=== PATIENT | male | born 1940 | race Caucasian/White ===

== ENCOUNTER 2021-12-14 00:35 | Inpatient (IN) | payer OTHER ==
[2021-12-14] MEDS ORDERED: methylPREDNISolone NA SUCC 125 MG/2 ML VIAL IVPUSH ONE (01:09)
[2021-12-14] MEDS ORDERED: ALBUTEROL SO4 2.5/IPRATROPIUM 0.5 INH SOL 3 ML VIAL.NEB. NEB ONE ×3 (01:09→09:47)
[2021-12-14] MEDS ORDERED: methylPREDNISolone NA SUCC 125 MG/2 ML VIAL ONE (01:15)
[2021-12-14 02:29] LABS: BASO % 0.6 % (0-2.0); EOS % 9.2 % (0-4.5); HEMATOCRIT 44.5 % (35.4-49); HEMOGLOBIN 15.2 GM/dL (11.7-16.9); LYMPH % 37.4 % (8-40); MCHC 34.2 g/dl (32.0-35.9); MEAN CELL VOLUME 90.6 fl (80-96); MEAN PLT VOLUME 7.9 fl (7.5-11.1); MONO % 8.2 % (3.8-10.2); NEUT % 44.6 % (42.8-82.8); PLATELET COUNT 120 10^3/uL (134-434); RBC 4.91 M/mm3 (4.00-5.60); RDW 13.9 % (11.9-15.9); WHITE BLOOD COUNT 6.4 K/mm3 (4.0-10.0)
[2021-12-14 02:37] LABS: INR 1.11 (0.83-1.09); PROTHROMBIN TIME (PATIENT) 12.8 SEC (9.7-13.0)
[2021-12-14 02:40] LABS: ACTIVATED PTT 32.3 SECONDS (25.2-36.5)
[2021-12-14 02:49] LABS: ALBUMIN 3.3 g/dl (3.4-5.0); BLOOD UREA NITROGEN 17.2 mg/dL (7-18); CALCIUM 8.3 mg/dL (8.5-10.1)
[2021-12-14 02:54] LABS: BILIRUBIN,TOTAL 0.6 mg/dL (0.2-1); TOT PROT 7.5 g/dl (6.4-8.2)
[2021-12-14 02:57] LABS: N-TERMINAL BNP 442.1 pg/ml (5-450)
[2021-12-14] MEDS ORDERED: ALBUTEROL SO4 HFA INHALER IH PRN (08:37)
[2021-12-14] MEDS ORDERED: ALBUTEROL SO4 2.5/IPRATROPIUM 0.5 INH SOL 3 ML VIAL.NEB. NEB SCH (08:45)
[2021-12-14] MEDS ORDERED: LEVOTHYROXINE NA 50 MCG TABLET (FP) PO SCH (10:00)
[2021-12-14] MEDS ORDERED: methylPREDNISolone NA SUCC 40 MG/1 ML VIAL ONE (10:01)
[2021-12-14] MEDS ORDERED: TAMSULOSIN HCL 0.4 MG CAP ONE (10:01)
[2021-12-14] MEDS ORDERED: ENALAPRIL MALEATE 5 MG TABLET ONE (10:01)
[2021-12-14] MEDS: methylPREDNISolone NA SUCC 40 MG/1 ML VIAL IVPUSH SCH ×2 (10:05→17:24)
[2021-12-14] MEDS: TAMSULOSIN HCL 0.4 MG CAP PO SCH (10:05)
[2021-12-14] MEDS: ENALAPRIL MALEATE 5 MG TABLET PO SCH (10:05)
[2021-12-14 10:29] LABS: ARTERIAL BLD GAS O2 SATURATION 94.6 % (95-98); ARTERIAL BLOOD GAS BASE EXCESS -0.3 mmol/L (-2-2); ARTERIAL BLOOD GAS PO2 71.2 mmHg (80-100); ARTERIAL BLOOD GAS pH 7.412 (7.350-7.450)
[2021-12-14 10:31] LABS: ALLENS TEST POSITIVE
[2021-12-14] MEDS ORDERED: ALBUTEROL SO4 0.083% IH SOL 2.5 MG/3 ML VIAL.NEB. NEB PRN (11:30)
[2021-12-14] MEDS ORDERED: LEVOTHYROXINE NA 75 MCG TABLET (FP) PO SCH (11:32)
[2021-12-14] MEDS: AZITHROMYCIN IVPB 500 MG in DEXTROSE 5%-WATER - 250 ML IVPB SCH (14:31)
[2021-12-14] MEDS: ALBUTEROL SO4 2.5/IPRATROPIUM 0.5 INH SOL 3 ML VIAL.NEB. NEB SCH ×3 (16:23→20:20)
[2021-12-15] MEDS: methylPREDNISolone NA SUCC 40 MG/1 ML VIAL IVPUSH SCH ×3 (02:57→17:00)
[2021-12-15] MEDS: ALBUTEROL SO4 2.5/IPRATROPIUM 0.5 INH SOL 3 ML VIAL.NEB. NEB SCH ×4 (07:36→19:17)
[2021-12-15 09:15] LABS: BASO % 0.1 % (0-2.0); HEMATOCRIT 40.4 % (35.4-49); HEMOGLOBIN 13.4 GM/dL (11.7-16.9); LYMPH % 8.2 % (8-40); MCH 29.9 pg (25.7-33.7); MCHC 33.1 g/dl (32.0-35.9); MEAN CELL VOLUME 90.5 fl (80-96); MEAN PLT VOLUME 8.4 fl (7.5-11.1); MONO % 3.3 % (3.8-10.2); NEUT % 88.4 % (42.8-82.8); PLATELET COUNT 123 10^3/uL (134-434); RBC 4.46 M/mm3 (4.00-5.60); RDW 14.3 % (11.9-15.9); WHITE BLOOD COUNT 13.7 K/mm3 (4.0-10.0)
[2021-12-15 09:46] LABS: CALCIUM 8.4 mg/dL (8.5-10.1)
[2021-12-15 09:47] LABS: BLOOD UREA NITROGEN 26.1 mg/dL (7-18); MAGNESIUM 2.3 mg/dL (1.8-2.4)
[2021-12-15 09:50] LABS: PHOSPHOROUS 3.5 mg/dL (2.5-4.9)
[2021-12-15 09:54] LABS: CHOLESTEROL 146 mg/dL (50-200)
[2021-12-15 09:55] LABS: TRIGLYCERIDES 45 mg/dL (0-150)
[2021-12-15 09:56] LABS: HDL CHOLESTEROL 76 mg/dL (40-60)
[2021-12-15 09:59] LABS: LDL CHOLESTEROL (ONLY SJRH) 64 mg/dL (5-100)
[2021-12-15] MEDS: TAMSULOSIN HCL 0.4 MG CAP PO SCH (10:39)
[2021-12-15] MEDS: AZITHROMYCIN IVPB 500 MG in DEXTROSE 5%-WATER - 250 ML IVPB SCH (10:39)
[2021-12-15] MEDS: ENALAPRIL MALEATE 5 MG TABLET PO SCH (10:39)
[2021-12-15] MEDS ORDERED: LEVOTHYROXINE NA 75 MCG TABLET (FP) PO SCH (12:46)
[2021-12-15 15:45] VITALS: BMI 19.0
[2021-12-16] MEDS: methylPREDNISolone NA SUCC 40 MG/1 ML VIAL IVPUSH SCH ×2 (01:51→10:35)
[2021-12-16 06:20] VITALS: TEMP 97.5
[2021-12-16] MEDS: ALBUTEROL SO4 2.5/IPRATROPIUM 0.5 INH SOL 3 ML VIAL.NEB. NEB SCH ×2 (09:00→12:02)
[2021-12-16] MEDS: TAMSULOSIN HCL 0.4 MG CAP PO SCH (10:35)
[2021-12-16] MEDS: AZITHROMYCIN IVPB 500 MG in DEXTROSE 5%-WATER - 250 ML IVPB SCH (10:35)
[2021-12-16] MEDS: ENALAPRIL MALEATE 5 MG TABLET PO SCH (10:35)
[2021-12-16] MEDS ORDERED: AZITHROMYCIN 250 MG TABLET PO ONE (11:45)
[2021-12-16 13:13] VITALS: BP 126/61; PULSE 66
== END 2021-12-16 14:43 | disposition home or self-care (01) | DRG 192 ==
LOC: JER 00:35 → JERBED 06:13 → OBSVTOIN 11:14 → J8W 12:27
PROVIDERS: ADMIT Internal Medicine; ATTEND Internal Medicine
DX: J44.1 Chronic obstructive pulmonary disease with (acute) exacerbation (principal); J20.9 Acute bronchitis, unspecified; D69.6 Thrombocytopenia, unspecified; I10 Essential (primary) hypertension; E03.9 Hypothyroidism, unspecified; F17.210 Nicotine dependence, cigarettes, uncomplicated; N40.0 Benign prostatic hyperplasia without lower urinary tract symptoms
CPT/HCPCS: 36415; 36600; 71046-TC-FY; 80048; 80053; 80061; 82803; 83036; 83735; 83880; 84100; 84439; 84443; 84484; 85025; 85610; 85730; 93005; 93010; 94640; 99285-25; C9803; G0378; U0003; U0005

== ENCOUNTER 2022-02-15 23:49 | Emergency (ER) | payer OTHER ==
[2022-02-16 00:11] VITALS: TEMP 97.6; BMI 21.2
[2022-02-16] MEDS ORDERED: ALBUTEROL SO4 2.5/IPRATROPIUM 0.5 INH SOL 3 ML VIAL.NEB. NEB ONE ×2 (00:23→00:29)
[2022-02-16] MEDS ORDERED: methylPREDNISolone NA SUCC 125 MG/2 ML VIAL IVPUSH SCH ×2 (00:25→10:00)
[2022-02-16 01:00] LABS: VENOUS BASE EXCESS 1.4 mmol/L (-2-2); VENOUS O2 SATURATION 36.8 % (70-80); VENOUS PCO2 63.7 mmHg (38-52); VENOUS PH 7.29 (7.310-7.410)
[2022-02-16 01:01] LABS: BASO % 0.7 % (0-2.0); EOS % 14.7 % (0-4.5); HEMATOCRIT 45.4 % (35.4-49); HEMOGLOBIN 15.2 GM/dL (11.7-16.9); LYMPH % 40.9 % (8-40); MCH 30.3 pg (25.7-33.7); MCHC 33.5 g/dl (32.0-35.9); MEAN CELL VOLUME 90.5 fl (80-96); MEAN PLT VOLUME 7.9 fl (7.5-11.1); MONO % 10.7 % (3.8-10.2); PLATELET COUNT 146 10^3/uL (134-434); RBC 5.02 M/mm3 (4.00-5.60); RDW 14.2 % (11.9-15.9); WHITE BLOOD COUNT 6.5 K/mm3 (4.0-10.0)
[2022-02-16 01:23] LABS: ALBUMIN 3.3 g/dl (3.4-5.0); CALCIUM 8.9 mg/dL (8.5-10.1)
[2022-02-16 01:26] LABS: CREATININE 1.2 mg/dL (0.55-1.3)
[2022-02-16 01:28] LABS: BILIRUBIN,TOTAL 0.4 mg/dL (0.2-1); TOT PROT 7.5 g/dl (6.4-8.2)
[2022-02-16 04:03] VITALS: BP 132/59; PULSE 87
== END 2022-02-16 04:04 | disposition home or self-care (01) ==
LOC: JER 23:49
PROC: 3E0F7GC Introduction of Other Therapeutic Substance into Respiratory Tract, Via Natural or Artificial Opening (ICD-10-PCS; principal; 2022-02-15)
DX: J44.1 Chronic obstructive pulmonary disease with (acute) exacerbation (principal)
CPT/HCPCS: 0241U-QW; 36415; 71045-TC-FY; 80053; 82803; 83880; 84484; 85025; 93005; 93010; 99285-25

== ENCOUNTER 2023-11-01 09:22 | Emergency (ER) | payer OTHER ==
[2023-11-01] MEDS ORDERED: methylPREDNISolone NA SUCC 125 MG/2 ML VIAL IVPUSH ONE (11:05)
[2023-11-01] MEDS ORDERED: NYSTATIN 500,000 UNITS/5 ML SUSPENSION PO ONE (11:15)
[2023-11-01] MEDS ORDERED: ALBUTEROL SO4 2.5/IPRATROPIUM 0.5 INH SOL 3 ML VIAL.NEB. NEB ONE (11:40)
[2023-11-01] MEDS ORDERED: methylPREDNISolone NA SUCC 125 MG/2 ML VIAL ONE (11:41)
[2023-11-01] MEDS: ALBUTEROL SO4 2.5/IPRATROPIUM 0.5 INH SOL 3 ML VIAL.NEB. NEB SCH ×4 (11:45→12:30)
[2023-11-01 12:20] LABS: BASO % 0.5 % (0-2.0); EOS % 6.2 % (0-4.5); HEMATOCRIT 45.6 % (35.4-49); HEMOGLOBIN 15.2 GM/dL (11.7-16.9); LYMPH % 31.2 % (8-40); MCH 30.4 pg (25.7-33.7); MCHC 33.3 g/dl (32.0-35.9); MEAN CELL VOLUME 91.4 fl (80-96); MEAN PLT VOLUME 8.1 fl (7.5-11.1); MONO % 9.1 % (3.8-10.2); PLATELET COUNT 120 10^3/uL (134-434); RBC 4.99 M/mm3 (4.00-5.60); RDW 13.9 % (11.9-15.9)
[2023-11-01 12:30] LABS: POTASSIUM 4.3 mmol/L (3.5-5.1)
[2023-11-01 12:32] LABS: CALCIUM 8.8 mg/dL (8.5-10.1)
[2023-11-01 12:33] LABS: ALBUMIN 3.3 g/dl (3.4-5.0); BLOOD UREA NITROGEN 21.8 mg/dL (7-18); MAGNESIUM 2.4 mg/dL (1.8-2.4)
[2023-11-01 12:37] LABS: BILIRUBIN,TOTAL 0.7 mg/dL (0.2-1)
[2023-11-01 12:38] LABS: TOT PROT 7.6 g/dl (6.4-8.2)
[2023-11-01 13:08] LABS: PLATELET ESTIMATE DECREASED
[2023-11-01 14:20] VITALS: TEMP 98.5; BMI 17.4
[2023-11-01] MEDS ORDERED: AZITHROMYCIN 250 MG TABLET PO ONE (15:53)
[2023-11-01] MEDS ORDERED: AZITHROMYCIN 500 MG TABLET ONE (16:26)
[2023-11-01 18:09] VITALS: BP 158/80; PULSE 102; RESP 18
== END 2023-11-01 18:21 | disposition home or self-care (01) ==
LOC: JER 09:22
PROC: 3E033NZ Introduction of Analgesics, Hypnotics, Sedatives into Peripheral Vein, Percutaneous Approach (ICD-10-PCS; principal; 2023-11-01)
PROC: 3E0F7GC Introduction of Other Therapeutic Substance into Respiratory Tract, Via Natural or Artificial Opening (ICD-10-PCS; 2023-11-01)
DX: R06.02 Shortness of breath (principal); J44.1 Chronic obstructive pulmonary disease with (acute) exacerbation; Z20.822 Contact with and (suspected) exposure to COVID-19
CPT/HCPCS: 0241U-QW; 36415; 71045-TC-FY; 80053; 83735; 84484; 85025; 93005; 93010; 94640; 96374; 99285-25

== ENCOUNTER 2023-11-24 00:33 | Observation (INO) | payer OTHER ==
[2023-11-24] MEDS ORDERED: methylPREDNISolone NA SUCC 125 MG/2 ML VIAL ONE (01:25)
[2023-11-24 01:27] LABS: VENOUS O2 SATURATION 59.2 % (70-80); VENOUS PCO2 58.3 mmHg (38-52); VENOUS PH 7.312 (7.310-7.410)
[2023-11-24] MEDS: methylPREDNISolone NA SUCC 125 MG/2 ML VIAL IVPUSH ONE (01:33)
[2023-11-24] MEDS: ALBUTEROL SO4 2.5/IPRATROPIUM 0.5 INH SOL 3 ML VIAL.NEB. NEB SCH ×2 (01:33→07:30)
[2023-11-24 01:53] LABS: POTASSIUM 5.4 mmol/L (3.5-5.1)
[2023-11-24 01:55] LABS: BLOOD UREA NITROGEN 24.2 mg/dL (7-18); CALCIUM 8.5 mg/dL (8.5-10.1); MAGNESIUM 2.2 mg/dL (1.8-2.4)
[2023-11-24 01:56] LABS: ALBUMIN 3.4 g/dl (3.4-5.0)
[2023-11-24 02:00] LABS: BILIRUBIN,TOTAL 0.3 mg/dL (0.2-1); TOT PROT 7.7 g/dl (6.4-8.2)
[2023-11-24 02:04] LABS: BASO % 0.4 % (0-2.0); EOS % 10.8 % (0-4.5); HEMATOCRIT 40.4 % (35.4-49); HEMOGLOBIN 13.6 GM/dL (11.7-16.9); LYMPH % 43.6 % (8-40); MCH 30.7 pg (25.7-33.7); MCHC 33.7 g/dl (32.0-35.9); MEAN CELL VOLUME 91.1 fl (80-96); MEAN PLT VOLUME 7.7 fl (7.5-11.1); MONO % 12.5 % (3.8-10.2); NEUT % 32.7 % (42.8-82.8); PLATELET COUNT 122 10^3/uL (134-434); RBC 4.44 M/mm3 (4.00-5.60); RDW 13.9 % (11.9-15.9); WHITE BLOOD COUNT 6.9 K/mm3 (4.0-10.0)
[2023-11-24] MEDS ORDERED: CEFTRIAXONE 1 GM/50 ML BAG ONE (03:01)
[2023-11-24] MEDS: CEFTRIAXONE 1,000 MG in DEXTROSE 5%-WATER - 50 ML IVPB ONE (03:06)
[2023-11-24] MEDS ORDERED: AZITHROMYCIN IVPB 500 MG/250 ML BAG IVPB ONE (03:18)
[2023-11-24] MEDS: AZITHROMYCIN IVPB 500 MG in DEXTROSE 5%-WATER - 250 ML IVPB ONE (03:28)
[2023-11-24 04:57] LABS: POTASSIUM 3.7 mmol/L (3.5-5.1)
[2023-11-24 04:59] LABS: MAGNESIUM 2.2 mg/dL (1.8-2.4)
[2023-11-24 05:02] LABS: PHOSPHOROUS 2.5 mg/dL (2.5-4.9)
[2023-11-24] MEDS: LEVOTHYROXINE NA 75 MCG TABLET (FP) PO SCH (07:55)
[2023-11-24] MEDS: TAMSULOSIN HCL 0.4 MG CAP PO SCH (07:55)
[2023-11-24 08:58] VITALS: BMI 19.5
[2023-11-24] MEDS: ENOXAPARIN NA (PORCINE) 40 MG/0.4 ML DISP.SYRIN SQ SCH (09:32)
[2023-11-24] MEDS: methylPREDNISolone NA SUCC 40 MG/1 ML VIAL IVPUSH SCH (09:32)
[2023-11-24] MEDS: ENALAPRIL MALEATE 5 MG TABLET PO SCH (09:33)
[2023-11-24] MEDS: BUDESONIDE/FORMETEROL FUMARATE 160/4.5 mcg INHALER IH SCH (10:56)
[2023-11-24 14:26] VITALS: BP 132/74; PULSE 84; RESP 18; TEMP 98
[2023-11-25] MEDS ORDERED: AZITHROMYCIN 250 MG TABLET PO SCH (10:00)
[2023-11-25] MEDS ORDERED: AZITHROMYCIN IVPB 500 MG/250 ML BAG IVPB SCH (10:00)
== END 2023-11-24 16:00 | disposition home or self-care (01) ==
LOC: JER 00:33 → JERBED 02:53 → J6S 06:43
PROVIDERS: ADMIT Internal Medicine; ATTEND Internal Medicine
PROC: 3E0F7GC Introduction of Other Therapeutic Substance into Respiratory Tract, Via Natural or Artificial Opening (ICD-10-PCS; principal; 2023-11-24)
PROC: 3E03329 Introduction of Other Anti-infective into Peripheral Vein, Percutaneous Approach (ICD-10-PCS; 2023-11-24)
PROC: 3E023GC Introduction of Other Therapeutic Substance into Muscle, Percutaneous Approach (ICD-10-PCS; 2023-11-24)
PROC: 3E033GC Introduction of Other Therapeutic Substance into Peripheral Vein, Percutaneous Approach (ICD-10-PCS; 2023-11-24)
DX: J44.1 Chronic obstructive pulmonary disease with (acute) exacerbation (principal); R09.3 Abnormal sputum; E03.9 Hypothyroidism, unspecified; I49.8 Other specified cardiac arrhythmias; N40.0 Benign prostatic hyperplasia without lower urinary tract symptoms; I10 Essential (primary) hypertension; Z95.810 Presence of automatic (implantable) cardiac defibrillator
CPT/HCPCS: 0241U-QW; 36415; 71045-TC-FY; 80048; 80053; 82803; 83735; 84100; 85025; 87040; 93005; 93010; 94640; 96365; 96366; 96372; 96375; 96376; 99285-25; G0378

== ENCOUNTER 2024-01-26 01:05 | Inpatient (IN) | payer OTHER ==
[2024-01-26 01:20] VITALS: BMI 18.1
[2024-01-26] MEDS: methylPREDNISolone NA SUCC 125 MG/2 ML VIAL IVPUSH ONE (01:57)
[2024-01-26] MEDS: ALBUTEROL SO4 2.5/IPRATROPIUM 0.5 INH SOL 3 ML VIAL.NEB. NEB SCH (01:57)
[2024-01-26 02:02] LABS: VENOUS BASE EXCESS 0.4 mmol/L (-2-2); VENOUS PCO2 58.5 mmHg (38-52); VENOUS PH 7.302 (7.310-7.410)
[2024-01-26 02:03] LABS: BASO % 0.4 % (0-2.0); EOS % 5.9 % (0-4.5); HEMOGLOBIN 14.3 GM/dL (11.7-16.9); LYMPH % 26.1 % (8-40); MCH 30.8 pg (25.7-33.7); MCHC 33.3 g/dl (32.0-35.9); MEAN CELL VOLUME 92.3 fl (80-96); MEAN PLT VOLUME 7.8 fl (7.5-11.1); MONO % 10.7 % (3.8-10.2); NEUT % 56.9 % (42.8-82.8); PLATELET COUNT 128 10^3/uL (134-434); RBC 4.66 M/mm3 (4.00-5.60); RDW 14.3 % (11.9-15.9); WHITE BLOOD COUNT 9.1 K/mm3 (4.0-10.0)
[2024-01-26] MEDS ORDERED: ALBUTEROL SO4 2.5/IPRATROPIUM 0.5 INH SOL 3 ML VIAL.NEB. NEB ONE (02:06)
[2024-01-26] MEDS ORDERED: methylPREDNISolone NA SUCC 125 MG/2 ML VIAL ONE (02:06)
[2024-01-26 02:11] LABS: INR 1.01 (0.83-1.09); PROTHROMBIN TIME (PATIENT) 11.7 SEC (9.7-13.0)
[2024-01-26 02:14] LABS: ACTIVATED PTT 31.6 SECONDS (25.2-36.5)
[2024-01-26 02:23] LABS: POTASSIUM 4.6 mmol/L (3.5-5.1)
[2024-01-26 02:25] LABS: CALCIUM 8.7 mg/dL (8.5-10.1)
[2024-01-26 02:26] LABS: ALBUMIN 3.5 g/dl (3.4-5.0)
[2024-01-26 02:29] LABS: CREATININE 0.9 mg/dL (0.55-1.3); TOT PROT 7.3 g/dl (6.4-8.2)
[2024-01-26 02:31] LABS: BILIRUBIN,TOTAL 0.5 mg/dL (0.2-1)
[2024-01-26 02:34] LABS: N-TERMINAL BNP 1650.1 pg/ml (5-450)
[2024-01-26] MEDS ORDERED: AZITHROMYCIN IVPB 500 MG/250 ML BAG IVPB ONE (04:18)
[2024-01-26] MEDS: AZITHROMYCIN IVPB 500 MG in DEXTROSE 5%-WATER - 250 ML IVPB ONE (04:21)
[2024-01-26 06:39] LABS: BASO % 0.4 % (0-2.0); EOS % 0.9 % (0-4.5); HEMATOCRIT 44.7 % (35.4-49); HEMOGLOBIN 14.6 GM/dL (11.7-16.9); LYMPH % 12.1 % (8-40); MCH 30.2 pg (25.7-33.7); MCHC 32.7 g/dl (32.0-35.9); MEAN CELL VOLUME 92.3 fl (80-96); MEAN PLT VOLUME 8.2 fl (7.5-11.1); MONO % 2.1 % (3.8-10.2); NEUT % 84.5 % (42.8-82.8); PLATELET COUNT 130 10^3/uL (134-434); RBC 4.84 M/mm3 (4.00-5.60); WHITE BLOOD COUNT 7.4 K/mm3 (4.0-10.0)
[2024-01-26 07:42] LABS: POTASSIUM 4.2 mmol/L (3.5-5.1)
[2024-01-26 07:46] LABS: CALCIUM 8.4 mg/dL (8.5-10.1)
[2024-01-26 07:47] LABS: ALBUMIN 3.5 g/dl (3.4-5.0); BLOOD UREA NITROGEN 15.9 mg/dL (7-18)
[2024-01-26 07:50] LABS: BILIRUBIN,TOTAL 0.7 mg/dL (0.2-1); CREATININE 0.9 mg/dL (0.55-1.3)
[2024-01-26 07:52] LABS: TOT PROT 7.2 g/dl (6.4-8.2)
[2024-01-26] MEDS ORDERED: ALBUTEROL SO4 0.083% IH SOL 2.5 MG/3 ML VIAL.NEB. NEB ONE (08:20)
[2024-01-26] MEDS ORDERED: methylPREDNISolone NA SUCC 40 MG/1 ML VIAL ONE (09:12)
[2024-01-26] MEDS ORDERED: ENOXAPARIN NA (PORCINE) 40 MG/0.4 ML DISP.SYRIN SQ ONE (09:12)
[2024-01-26] MEDS ORDERED: AZITHROMYCIN 500 MG TABLET ONE (09:12)
[2024-01-26] MEDS ORDERED: NICOTINE 21 MG/24 HOURS TOPICAL PATCH ONE (09:12)
[2024-01-26] MEDS: NICOTINE 21 MG/24 HOURS TOPICAL PATCH TD SCH (09:22)
[2024-01-26] MEDS: FLUTICASONE/UMECLIDIN/VILANTER(200-62.5-25 TRELEGY ELLIPTA) INAHLER IH SCH (09:22)
[2024-01-26] MEDS: ENOXAPARIN NA (PORCINE) 40 MG/0.4 ML DISP.SYRIN SQ SCH (09:22)
[2024-01-26] MEDS: ALBUTEROL SO4 0.083% IH SOL 2.5 MG/3 ML VIAL.NEB. NEB SCH (09:22)
[2024-01-26] MEDS: methylPREDNISolone NA SUCC 40 MG/1 ML VIAL IVPB SCH (09:22)
[2024-01-26] MEDS: AZITHROMYCIN 250 MG TABLET PO SCH (09:23)
[2024-01-26] MEDS: guaiFENesin 600 MG TABLET.ER (FP) PO SCH (21:41)
[2024-01-26] MEDS: BENZONATATE 200 MG CAPSULE PO PRN (21:41)
[2024-01-27] MEDS: LEVOTHYROXINE NA 75 MCG TABLET (FP) PO SCH (06:14)
[2024-01-27] MEDS: ENALAPRIL MALEATE 5 MG TABLET PO SCH (13:49)
[2024-01-28 09:04] LABS: BASO % 0.2 % (0-2.0); EOS % 0.3 % (0-4.5); HEMATOCRIT 43.3 % (35.4-49); HEMOGLOBIN 14.5 GM/dL (11.7-16.9); LYMPH % 29.6 % (8-40); MCH 30.8 pg (25.7-33.7); MCHC 33.5 g/dl (32.0-35.9); MEAN PLT VOLUME 8.3 fl (7.5-11.1); MONO % 7.4 % (3.8-10.2); NEUT % 62.5 % (42.8-82.8); PLATELET COUNT 160 10^3/uL (134-434); RDW 14.2 % (11.9-15.9)
[2024-01-28 09:28] LABS: POTASSIUM 4.1 mmol/L (3.5-5.1)
[2024-01-28 09:35] LABS: CALCIUM 9.1 mg/dL (8.5-10.1)
[2024-01-28 09:37] LABS: BLOOD UREA NITROGEN 20.9 mg/dL (7-18)
[2024-01-28 09:38] LABS: CREATININE 0.9 mg/dL (0.55-1.3)
[2024-01-28] MEDS: ALBUTEROL SO4 HFA INHALER IH PRN (10:04)
[2024-01-28] MEDS: FLUTICASONE/UMECLIDIN/VILANTER(200-62.5-25 TRELEGY ELLIPTA) INAHLER IH SCH (12:09)
[2024-01-28] MEDS ORDERED: EMPAGLIFLOZIN (JARDIANCE) 10 MG TABLET PO SCH (14:00)
[2024-01-28] MEDS: SPIRONOLACTONE 25 MG TABLET PO SCH (15:27)
[2024-01-29 13:24] VITALS: BP 120/74; PULSE 87; RESP 20; TEMP 98.1
== END 2024-01-29 15:33 | disposition home or self-care (01) | DRG 191 ==
LOC: JER 01:05 → JERBED 03:52 → J7W 10:43
PROVIDERS: ADMIT Student in an Organized Health Care Education/Training Program
DX: J44.1 Chronic obstructive pulmonary disease with (acute) exacerbation (principal); I50.22 Chronic systolic (congestive) heart failure; N40.0 Benign prostatic hyperplasia without lower urinary tract symptoms; E03.9 Hypothyroidism, unspecified; I49.8 Other specified cardiac arrhythmias; I11.0 Hypertensive heart disease with heart failure; F17.200 Nicotine dependence, unspecified, uncomplicated; Z95.810 Presence of automatic (implantable) cardiac defibrillator
CPT/HCPCS: 0241U-QW; 36415; 71045-TC-FY; 80048; 80053; 82803; 83880; 84484; 85025; 85610; 85730; 87070; 87205; 93005; 93010; 93306-TC; 94640; 94761; 99285-25

== ENCOUNTER 2024-02-14 02:00 | Observation (INO) | payer OTHER ==
[2024-02-14 02:09] VITALS: BMI 17.4
[2024-02-14] MEDS: ALBUTEROL SO4 2.5/IPRATROPIUM 0.5 INH SOL 3 ML VIAL.NEB. NEB ONE (02:10)
[2024-02-14] MEDS ORDERED: methylPREDNISolone NA SUCC 125 MG/2 ML VIAL ONE (02:43)
[2024-02-14] MEDS: methylPREDNISolone NA SUCC 125 MG/2 ML VIAL IVPUSH ONE (02:48)
[2024-02-14 03:14] LABS: VENOUS BASE EXCESS 2.7 mmol/L (-2-2); VENOUS O2 SATURATION 40.4 % (70-80); VENOUS PCO2 65.3 mmHg (38-52); VENOUS PH 7.303 (7.310-7.410)
[2024-02-14 03:16] LABS: BASO % 0.4 % (0-2.0); EOS % 7.8 % (0-4.5); HEMATOCRIT 47.6 % (35.4-49); HEMOGLOBIN 16.3 GM/dL (11.7-16.9); LYMPH % 33.6 % (8-40); MCH 31.1 pg (25.7-33.7); MCHC 34.2 g/dl (32.0-35.9); MEAN CELL VOLUME 90.9 fl (80-96); MEAN PLT VOLUME 8.2 fl (7.5-11.1); MONO % 7.4 % (3.8-10.2); NEUT % 50.8 % (42.8-82.8); PLATELET COUNT 124 10^3/uL (134-434); RBC 5.23 M/mm3 (4.00-5.60); RDW 13.9 % (11.9-15.9); WHITE BLOOD COUNT 9.5 K/mm3 (4.0-10.0)
[2024-02-14 03:35] LABS: POTASSIUM 4.4 mmol/L (3.5-5.1)
[2024-02-14 03:36] LABS: CALCIUM 8.9 mg/dL (8.5-10.1)
[2024-02-14 03:38] LABS: ALBUMIN 3.5 g/dl (3.4-5.0); BLOOD UREA NITROGEN 22.5 mg/dL (7-18)
[2024-02-14 03:41] LABS: CREATININE 1.2 mg/dL (0.55-1.3)
[2024-02-14 03:42] LABS: BILIRUBIN,TOTAL 0.6 mg/dL (0.2-1)
[2024-02-14 03:43] LABS: TOT PROT 7.3 g/dl (6.4-8.2)
[2024-02-14] MEDS ORDERED: AZITHROMYCIN IVPB 500 MG/250 ML BAG IVPB ONE (04:45)
[2024-02-14] MEDS: AZITHROMYCIN IVPB 500 MG in DEXTROSE 5%-WATER - 250 ML IVPB ONE (04:53)
[2024-02-14] MEDS ORDERED: ALBUTEROL SO4 2.5/IPRATROPIUM 0.5 INH SOL 3 ML VIAL.NEB. NEB PRN (08:09)
[2024-02-14] MEDS: TAMSULOSIN HCL 0.4 MG CAP PO SCH (11:04)
[2024-02-14] MEDS: FUROSEMIDE 20 MG TABLET (FP) PO SCH (11:04)
[2024-02-14] MEDS: ENOXAPARIN NA (PORCINE) 40 MG/0.4 ML DISP.SYRIN SQ SCH (11:04)
[2024-02-14] MEDS: methylPREDNISolone NA SUCC 40 MG/1 ML VIAL IVPUSH SCH (11:04)
[2024-02-14] MEDS: BUDESONIDE/FORMETEROL FUMARATE 80/4.5 mcg INHALER IH SCH (11:05)
[2024-02-14] MEDS: EMPAGLIFLOZIN (JARDIANCE) 10 MG TABLET PO SCH (11:05)
[2024-02-14] MEDS: ENALAPRIL MALEATE 5 MG TABLET PO SCH (11:05)
[2024-02-14] MEDS: ALBUTEROL SO4 2.5/IPRATROPIUM 0.5 INH SOL 3 ML VIAL.NEB. NEB SCH (11:37)
[2024-02-15] MEDS: AZITHROMYCIN IVPB 500 MG/250 ML BAG IVPB SCH (06:09)
[2024-02-15] MEDS: LEVOTHYROXINE NA 75 MCG TABLET (FP) PO SCH (06:13)
[2024-02-15 08:31] LABS: BASO % 0.2 % (0-2.0); EOS % 0.3 % (0-4.5); HEMATOCRIT 42.9 % (35.4-49); HEMOGLOBIN 14.3 GM/dL (11.7-16.9); LYMPH % 19.5 % (8-40); MCH 30.6 pg (25.7-33.7); MCHC 33.4 g/dl (32.0-35.9); MEAN CELL VOLUME 91.7 fl (80-96); MEAN PLT VOLUME 8.1 fl (7.5-11.1); MONO % 6.1 % (3.8-10.2); NEUT % 73.9 % (42.8-82.8); PLATELET COUNT 126 10^3/uL (134-434); RBC 4.68 M/mm3 (4.00-5.60); RDW 13.5 % (11.9-15.9); WHITE BLOOD COUNT 12.6 K/mm3 (4.0-10.0)
[2024-02-15 08:51] LABS: POTASSIUM 4.1 mmol/L (3.5-5.1)
[2024-02-15 09:00] LABS: CALCIUM 8.7 mg/dL (8.5-10.1)
[2024-02-15 09:02] LABS: ALBUMIN 3.2 g/dl (3.4-5.0); BLOOD UREA NITROGEN 22.2 mg/dL (7-18); MAGNESIUM 2.3 mg/dL (1.8-2.4)
[2024-02-15 09:05] LABS: PHOSPHOROUS 3.9 mg/dL (2.5-4.9)
[2024-02-15 09:07] LABS: BILIRUBIN,TOTAL 0.4 mg/dL (0.2-1); TOT PROT 6.5 g/dl (6.4-8.2)
[2024-02-16 06:06] VITALS: BP 138/71; PULSE 66; RESP 18; TEMP 97.9
== END 2024-02-16 14:32 | disposition home or self-care (01) ==
LOC: JER 02:00 → JERBED 05:46 → J8W 08:06
PROVIDERS: ADMIT Internal Medicine; ATTEND Nurse Practitioner Family
PROC: 3E0F7GC Introduction of Other Therapeutic Substance into Respiratory Tract, Via Natural or Artificial Opening (ICD-10-PCS; principal; 2024-02-14)
PROC: 3E03329 Introduction of Other Anti-infective into Peripheral Vein, Percutaneous Approach (ICD-10-PCS; 2024-02-14)
PROC: 3E023GC Introduction of Other Therapeutic Substance into Muscle, Percutaneous Approach (ICD-10-PCS; 2024-02-14)
PROC: 3E033GC Introduction of Other Therapeutic Substance into Peripheral Vein, Percutaneous Approach (ICD-10-PCS; 2024-02-14)
DX: J44.1 Chronic obstructive pulmonary disease with (acute) exacerbation (principal); E44.0 Moderate protein-calorie malnutrition; I10 Essential (primary) hypertension; I49.8 Other specified cardiac arrhythmias; N40.0 Benign prostatic hyperplasia without lower urinary tract symptoms; Z29.89 Encounter for other specified prophylactic measures; R06.02 Shortness of breath
CPT/HCPCS: 0241U-QW; 36415; 71045-TC-FY; 80053; 82803; 83735; 84100; 84484; 85025; 93005; 93010; 94640; 96365; 96367; 96372; 96375; 96376; 97116-GP; 97161-GP; 99285-25; G0378

== ENCOUNTER 2024-06-22 06:04 | Emergency (ER) | payer OTHER ==
[2024-06-22] MEDS ORDERED: methylPREDNISolone NA SUCC 125 MG/2 ML VIAL ONE (06:18)
[2024-06-22] MEDS ORDERED: ALBUTEROL SO4 2.5/IPRATROPIUM 0.5 INH SOL 3 ML VIAL.NEB. NEB ONE (06:18)
[2024-06-22] MEDS: methylPREDNISolone NA SUCC 125 MG/2 ML VIAL IVPB ONE (06:30)
[2024-06-22] MEDS: ALBUTEROL SO4 2.5/IPRATROPIUM 0.5 INH SOL 3 ML VIAL.NEB. NEB ONE (06:30)
[2024-06-22 06:33] VITALS: BMI 18.2
[2024-06-22 06:54] LABS: VENOUS BASE EXCESS 0.1 mmol/L (-2-2); VENOUS O2 SATURATION 33.7 % (70-80); VENOUS PCO2 55.7 mmHg (38-52); VENOUS PH 7.313 (7.310-7.410)
[2024-06-22 07:10] LABS: BASO % 0.5 % (0-2.0); EOS % 7.6 % (0-4.5); HEMATOCRIT 45.7 % (35.4-49); HEMOGLOBIN 15.1 GM/dL (11.7-16.9); LYMPH % 35.5 % (8-40); MCH 30.5 pg (25.7-33.7); MEAN CELL VOLUME 92.4 fl (80-96); MEAN PLT VOLUME 8.3 fl (7.5-11.1); MONO % 8.6 % (3.8-10.2); NEUT % 47.8 % (42.8-82.8); PLATELET COUNT 127 10^3/uL (134-434); RBC 4.95 M/mm3 (4.00-5.60); RDW 13.7 % (11.9-15.9); WHITE BLOOD COUNT 7.6 K/mm3 (4.0-10.0)
[2024-06-22 07:15] LABS: POTASSIUM 4.3 mmol/L (3.5-5.1)
[2024-06-22 07:17] LABS: CALCIUM 8.6 mg/dL (8.5-10.1)
[2024-06-22 07:18] LABS: ALBUMIN 3.4 g/dl (3.4-5.0); BLOOD UREA NITROGEN 19.3 mg/dL (7-18)
[2024-06-22 07:21] LABS: CREATININE 0.9 mg/dL (0.55-1.3)
[2024-06-22 07:22] LABS: BILIRUBIN,TOTAL 0.7 mg/dL (0.2-1)
[2024-06-22 09:26] VITALS: BP 136/65; PULSE 86; RESP 20; TEMP 98.7
== END 2024-06-22 09:27 | disposition home or self-care (01) ==
LOC: JER 06:04
PROC: 3E033GC Introduction of Other Therapeutic Substance into Peripheral Vein, Percutaneous Approach (ICD-10-PCS; principal; 2024-06-22)
PROC: 3E0F7GC Introduction of Other Therapeutic Substance into Respiratory Tract, Via Natural or Artificial Opening (ICD-10-PCS; 2024-06-22)
DX: J44.1 Chronic obstructive pulmonary disease with (acute) exacerbation (principal); R06.02 Shortness of breath; K40.90 Unilateral inguinal hernia, without obstruction or gangrene, not specified as recurrent
CPT/HCPCS: 36415; 71045-TC-FY; 80053; 82803; 84484; 85025; 93005; 93010; 94640; 96374; 99285-25

== ENCOUNTER 2024-07-01 05:06 | Observation (INO) | payer OTHER ==
[2024-07-01 05:24] VITALS: BMI 19.8
[2024-07-01] MEDS ORDERED: ALBUTEROL SO4 2.5/IPRATROPIUM 0.5 INH SOL 3 ML VIAL.NEB. NEB ONE ×2 (06:33→17:28)
[2024-07-01] MEDS ORDERED: AZITHROMYCIN IVPB 500 MG/250 ML BAG IVPB ONE (06:33)
[2024-07-01] MEDS: ALBUTEROL SO4 2.5/IPRATROPIUM 0.5 INH SOL 3 ML VIAL.NEB. NEB ONE (06:36)
[2024-07-01] MEDS: AZITHROMYCIN IVPB 500 MG in DEXTROSE 5%-WATER - 250 ML IVPB ONE (06:36)
[2024-07-01 07:25] LABS: BASO % 0.6 % (0-2.0); EOS % 7.2 % (0-4.5); HEMOGLOBIN 15.9 GM/dL (11.7-16.9); LYMPH % 37.4 % (8-40); MCH 30.2 pg (25.7-33.7); MCHC 32.4 g/dl (32.0-35.9); MEAN CELL VOLUME 93.2 fl (80-96); MEAN PLT VOLUME 8.5 fl (7.5-11.1); MONO % 9.6 % (3.8-10.2); NEUT % 45.2 % (42.8-82.8); PLATELET COUNT 141 10^3/uL (134-434); RBC 5.26 M/mm3 (4.00-5.60); RDW 13.6 % (11.9-15.9); WHITE BLOOD COUNT 8.1 K/mm3 (4.0-10.0)
[2024-07-01 10:02] LABS: POTASSIUM 3.8 mmol/L (3.5-5.1)
[2024-07-01 10:04] LABS: ALBUMIN 3.7 g/dl (3.4-5.0); BLOOD UREA NITROGEN 18.3 mg/dL (7-18); CALCIUM 8.7 mg/dL (8.5-10.1)
[2024-07-01 10:09] LABS: BILIRUBIN,TOTAL 0.6 mg/dL (0.2-1); TOT PROT 7.6 g/dl (6.4-8.2)
[2024-07-01] MEDS ORDERED: methylPREDNISolone NA SUCC 40 MG/1 ML VIAL IVPUSH SCH (12:15)
[2024-07-01] MEDS: INSULIN ASPART SLIDING SCALE (NOVOLOG) 1 VIAL SQ SCH (17:28)
[2024-07-01] MEDS ORDERED: methylPREDNISolone NA SUCC 40 MG/1 ML VIAL ONE (17:28)
[2024-07-01] MEDS: methylPREDNISolone NA SUCC 40 MG/1 ML VIAL IVPUSH SCH (17:37)
[2024-07-01] MEDS: ALBUTEROL SO4 2.5/IPRATROPIUM 0.5 INH SOL 3 ML VIAL.NEB. NEB SCH (17:37)
[2024-07-02] MEDS: ACETAMINOPHEN 325 MG TABLET (FP) PO ONE (06:59)
[2024-07-02] MEDS: LEVOTHYROXINE NA 75 MCG TABLET (FP) PO SCH (07:00)
[2024-07-02 08:41] LABS: HEMATOCRIT 44.6 % (35.4-49); HEMOGLOBIN 14.5 GM/dL (11.7-16.9); MCHC 32.4 g/dl (32.0-35.9); MEAN CELL VOLUME 92.4 fl (80-96); MEAN PLT VOLUME 7.9 fl (7.5-11.1); PLATELET COUNT 141 10^3/uL (134-434); RBC 4.82 M/mm3 (4.00-5.60); RDW 13.5 % (11.9-15.9); WHITE BLOOD COUNT 12.3 K/mm3 (4.0-10.0)
[2024-07-02 08:56] LABS: POTASSIUM 4.6 mmol/L (3.5-5.1)
[2024-07-02 08:58] LABS: BLOOD UREA NITROGEN 24.9 mg/dL (7-18)
[2024-07-02 09:01] LABS: CREATININE 0.9 mg/dL (0.55-1.3)
[2024-07-02] MEDS ORDERED: methylPREDNISolone NA SUCC 40 MG/1 ML VIAL IVPUSH SCH (10:00)
[2024-07-02] MEDS: ENOXAPARIN NA (PORCINE) 40 MG/0.4 ML DISP.SYRIN SQ SCH (10:32)
[2024-07-02] MEDS: TAMSULOSIN HCL 0.4 MG CAP PO SCH (10:32)
[2024-07-02] MEDS: ENALAPRIL MALEATE 5 MG TABLET PO SCH (10:32)
[2024-07-02] MEDS ORDERED: NICOTINE POLACRILEX 2 MG GUM BUC PRN (14:47)
[2024-07-02] MEDS: NICOTINE 7 MG/24 HOURS TOPICAL PATCH TD SCH (16:04)
[2024-07-02] MEDS: NICOTINE 14 MG/24 HOURS TOPICAL PATCH TD SCH (16:39)
[2024-07-03 01:27] VITALS: RESP 18
[2024-07-03] MEDS ORDERED: INSULIN ASPART SLIDING SCALE (NOVOLOG) 1 VIAL SQ ONE ×2 (11:51→16:31)
[2024-07-03 15:48] VITALS: BP 107/49; PULSE 72; TEMP 97.8
[2024-07-03] MEDS: PNEUMOC 20-VAL CONJ-DIP CRM/PF 0.5 ML SYRINGE IM ONE (17:45)
== END 2024-07-03 17:57 | disposition home or self-care (01) ==
LOC: JER 05:06 → JERBED 10:46 → J7W 17:58
PROVIDERS: ADMIT Internal Medicine
PROC: 3E0F7GC Introduction of Other Therapeutic Substance into Respiratory Tract, Via Natural or Artificial Opening (ICD-10-PCS; principal; 2024-07-01)
PROC: 3E023GC Introduction of Other Therapeutic Substance into Muscle, Percutaneous Approach (ICD-10-PCS; 2024-07-01)
PROC: 3E013VG Introduction of Insulin into Subcutaneous Tissue, Percutaneous Approach (ICD-10-PCS; 2024-07-01)
DX: J44.1 Chronic obstructive pulmonary disease with (acute) exacerbation (principal); J43.9 Emphysema, unspecified; I49.8 Other specified cardiac arrhythmias; E11.9 Type 2 diabetes mellitus without complications; E03.9 Hypothyroidism, unspecified; N40.0 Benign prostatic hyperplasia without lower urinary tract symptoms; I10 Essential (primary) hypertension; Z72.0 Tobacco use; Z23 Encounter for immunization
CPT/HCPCS: 0241U-QW; 36415; 71045-TC-FY; 80048; 80053; 82550; 82962; 83880; 84484; 85025; 85027; 90677; 93005; 93010; 93306-TC; 94640; 94761; 96365; 96372; 97116-GP; 97161-GP; 99285-25; G0009; G0378

== ENCOUNTER 2024-11-29 03:24 | Emergency (ER) | payer OTHER ==
[2024-11-29] MEDS: methylPREDNISolone NA SUCC 125 MG/2 ML VIAL IM ONE (03:50)
[2024-11-29 03:58] VITALS: TEMP 97.4; BMI 18.2
[2024-11-29] MEDS ORDERED: methylPREDNISolone NA SUCC 125 MG/2 ML VIAL ONE (03:58)
[2024-11-29] MEDS: ALBUTEROL SO4 2.5/IPRATROPIUM 0.5 INH SOL 3 ML VIAL.NEB. NEB SCH (04:15)
[2024-11-29] MEDS: methylPREDNISolone NA SUCC 125 MG/2 ML VIAL IVPUSH ONE (04:15)
[2024-11-29 04:23] LABS: VENOUS BASE EXCESS 0.5 mmol/L (-2-2); VENOUS O2 SATURATION 39.3 % (70-80); VENOUS PH 7.31 (7.310-7.410)
[2024-11-29 04:23] LABS: BASO % 0.7 % (0-2.0); EOS % 6.3 % (0-4.5); HEMATOCRIT 44.9 % (35.4-49); HEMOGLOBIN 14.9 GM/dL (11.7-16.9); LYMPH % 34.7 % (8-40); MCH 29.7 pg (25.7-33.7); MCHC 33.1 g/dl (32.0-35.9); MEAN CELL VOLUME 89.8 fl (80-96); MEAN PLT VOLUME 7.9 fl (7.5-11.1); MONO % 6.8 % (3.8-10.2); NEUT % 51.5 % (42.8-82.8); PLATELET COUNT 145 10^3/uL (134-434); RDW 13.8 % (11.9-15.9); WHITE BLOOD COUNT 8.6 K/mm3 (4.0-10.0)
[2024-11-29] MEDS ORDERED: AZITHROMYCIN IVPB 500 MG/250 ML BAG IVPB ONE (04:25)
[2024-11-29] MEDS: AZITHROMYCIN IVPB 500 MG in DEXTROSE 5%-WATER - 250 ML IVPB ONE (04:30)
[2024-11-29] MEDS ORDERED: ASPIRIN 81 MG CHEWABLE TABLETS ONE (04:43)
[2024-11-29] MEDS ORDERED: ACETAMINOPHEN INJECTION 100 ML ONE (04:44)
[2024-11-29 04:56] LABS: CALCIUM 8.4 mg/dL (8.5-10.1)
[2024-11-29 04:57] LABS: ALBUMIN 3.2 g/dl (3.4-5.0); BLOOD UREA NITROGEN 20.2 mg/dL (7-18); MAGNESIUM 2.1 mg/dL (1.8-2.4)
[2024-11-29] MEDS: ASPIRIN 81 MG CHEWABLE TABLETS PO ONE (04:58)
[2024-11-29] MEDS: ACETAMINOPHEN 1000 MG/100 ML BAG IVPB ONE (04:58)
[2024-11-29 05:00] LABS: CREATININE 0.9 mg/dL (0.55-1.3)
[2024-11-29 05:01] LABS: BILIRUBIN,TOTAL 0.4 mg/dL (0.2-1); TOT PROT 7.3 g/dl (6.4-8.2)
[2024-11-29 05:43] LABS: N-TERMINAL BNP 1637.9 pg/ml (5-450)
[2024-11-29] MEDS ORDERED: FUROSEMIDE 40 MG/4 ML INJECTABLE VIAL ONE (06:29)
[2024-11-29] MEDS: FUROSEMIDE 40 MG/4 ML INJECTABLE VIAL IVPUSH ONE (06:44)
[2024-11-29 09:08] VITALS: BP 108/73; PULSE 88; RESP 23
== END 2024-11-29 09:46 | disposition home or self-care (01) ==
LOC: JER 03:24
PROC: 3E03329 Introduction of Other Anti-infective into Peripheral Vein, Percutaneous Approach (ICD-10-PCS; principal; 2024-11-29)
PROC: 3E033NZ Introduction of Analgesics, Hypnotics, Sedatives into Peripheral Vein, Percutaneous Approach (ICD-10-PCS; 2024-11-29)
PROC: 3E033GC Introduction of Other Therapeutic Substance into Peripheral Vein, Percutaneous Approach (ICD-10-PCS; 2024-11-29)
PROC: 3E033GC Introduction of Other Therapeutic Substance into Peripheral Vein, Percutaneous Approach (ICD-10-PCS; 2024-11-29)
PROC: 3E0F7GC Introduction of Other Therapeutic Substance into Respiratory Tract, Via Natural or Artificial Opening (ICD-10-PCS; 2024-11-29)
DX: J44.1 Chronic obstructive pulmonary disease with (acute) exacerbation (principal); R06.02 Shortness of breath; Z20.822 Contact with and (suspected) exposure to COVID-19
CPT/HCPCS: 0241U-QW; 36415; 71045-TC-FY; 80053; 82803; 83735; 83880; 84484; 85025; 93005; 93010; 94640; 96365; 96375; 99285-25; J0131

== ENCOUNTER 2025-04-26 21:59 | Observation (INO) | payer OTHER ==
[2025-04-26 23:05] LABS: ABSOLUTE IMMATURE GRANULOCYTES 0.03 x10^3/uL (0.0-0.031); BASOPHILS # 0.03 x10^3/uL (0.01-0.08); EOSINOPHIL % 4.8 % (0.8-7.0); EOSINOPHILS # 0.40 x10^3/uL (0.04-0.54); MCHC 32.8 g/dl (32.3-36.5); MEAN CELL VOLUME 89.3 fl (79.0-92.2); MEAN PLT VOLUME 9.4 fl (9.4-12.4); MONOCYTE # 0.66 x10^3/uL (0.30-0.82); MONOCYTE % 7.9 % (5.3-12.2); RDW 13.8 % (12.6-16.6)
[2025-04-26 23:14] LABS: INR 1.06 (0.83-1.09); PROTHROMBIN TIME (PATIENT) 11.6 SEC (9.7-13.0)
[2025-04-26 23:17] LABS: ACTIVATED PTT 29.2 SECONDS (25.2-36.5)
[2025-04-26 23:22] LABS: CO2 25.0 mmol/L (21-32)
[2025-04-26 23:23] LABS: GLUCOSE,RANDOM 94.0 mg/dL (74-106)
[2025-04-26 23:25] LABS: CREATININE 1.3 mg/dL (0.55-1.3); SGOT/AST 30.0 U/L (15-37); SGPT/ALT 17.0 U/L (13-61)
[2025-04-26 23:27] LABS: TOT PROT 7.6 g/dl (6.4-8.2)
[2025-04-26 23:28] LABS: ALK PHOS 61.0 U/L (45-117)
[2025-04-26 23:30] LABS: N-TERMINAL BNP 1040.7 pg/ml (5-450)
[2025-04-27 00:14] LABS: HIV INTERPRETATION NEGATIVE (NEGATIVE)
[2025-04-27 04:34] LABS: HCV DIAGNOSTIC IN-HOUSE W/RFLX REACTIVE (NONREACTIVE)
[2025-04-27] MEDS ORDERED: LEVOTHYROXINE NA 75 MCG TABLET (FP) ONE (06:14)
[2025-04-27] MEDS: LEVOTHYROXINE NA 75 MCG TABLET (FP) PO SCH (06:15)
[2025-04-27] MEDS ORDERED: CARVEDILOL 6.25 MG TABLET (FP) ONE (09:06)
[2025-04-27] MEDS ORDERED: TAMSULOSIN HCL 0.4 MG CAP ONE (09:06)
[2025-04-27] MEDS: CARVEDILOL 6.25 MG TABLET (FP) PO SCH (09:08)
[2025-04-27] MEDS: TAMSULOSIN HCL 0.4 MG CAP PO SCH (09:09)
[2025-04-27] MEDS: FLUTICASONE/UMECLIDIN/VILANTER(200-62.5-25 TRELEGY ELLIPTA) INAHLER IH SCH (11:08)
[2025-04-27] MEDS ORDERED: ALBUTEROL SO4 2.5/IPRATROPIUM 0.5 INH SOL 3 ML VIAL.NEB. NEB ONE (15:44)
[2025-04-27] MEDS: ALBUTEROL SO4 2.5/IPRATROPIUM 0.5 INH SOL 3 ML VIAL.NEB. NEB PRN (15:54)
[2025-04-27 20:04] VITALS: BMI 18.2
[2025-04-28 07:34] LABS: ABSOLUTE IMMATURE GRANULOCYTES 0.02 x10^3/uL (0.0-0.031); BASOPHILS # 0.03 x10^3/uL (0.01-0.08); EOSINOPHIL % 5.6 % (0.8-7.0); EOSINOPHILS # 0.41 x10^3/uL (0.04-0.54); MCHC 32.5 g/dl (32.3-36.5); MEAN CELL VOLUME 89.6 fl (79.0-92.2); MEAN PLT VOLUME 9.4 fl (9.4-12.4); MONOCYTE # 0.67 x10^3/uL (0.30-0.82); MONOCYTE % 9.2 % (5.3-12.2); RDW 13.8 % (12.6-16.6)
[2025-04-28 08:28] LABS: CO2 28.0 mmol/L (21-32); GLUCOSE,RANDOM 99.0 mg/dL (74-106)
[2025-04-28 08:31] LABS: CREATININE 1.1 mg/dL (0.55-1.3); SGOT/AST 28.0 U/L (15-37)
[2025-04-28 08:32] LABS: TOT PROT 7.7 g/dl (6.4-8.2)
[2025-04-28 08:33] LABS: ALK PHOS 58.0 U/L (45-117); SGPT/ALT 15.0 U/L (13-61)
[2025-04-28] MEDS: SACUBITRIL/VALSARTAN 24 MG-26 MG TABLET PO SCH (09:25)
[2025-04-29 07:34] LABS: ABSOLUTE IMMATURE GRANULOCYTES 0.02 x10^3/uL (0.0-0.031); BASOPHILS # 0.04 x10^3/uL (0.01-0.08); EOSINOPHIL % 5.0 % (0.8-7.0); EOSINOPHILS # 0.43 x10^3/uL (0.04-0.54); MCHC 32.7 g/dl (32.3-36.5); MEAN CELL VOLUME 89.7 fl (79.0-92.2); MEAN PLT VOLUME 10.0 fl (9.4-12.4); MONOCYTE # 0.91 x10^3/uL (0.30-0.82); MONOCYTE % 10.7 % (5.3-12.2); RDW 13.9 % (12.6-16.6)
[2025-04-29 08:03] LABS: CO2 31.0 mmol/L (21-32); GLUCOSE,RANDOM 96.0 mg/dL (74-106)
[2025-04-29 08:05] LABS: SGOT/AST 24.0 U/L (15-37); SGPT/ALT 16.0 U/L (13-61)
[2025-04-29 08:06] LABS: CREATININE 1.0 mg/dL (0.55-1.3)
[2025-04-29 08:07] LABS: TOT PROT 7.6 g/dl (6.4-8.2)
[2025-04-29 08:08] LABS: ALK PHOS 62.0 U/L (45-117)
[2025-04-29] MEDS: ACETAMINOPHEN 1000 MG/100 ML BAG IVPB PRN (12:05)
[2025-04-29 15:36] VITALS: BP 98/64; PULSE 80; RESP 17; TEMP 98.1
== END 2025-04-29 15:37 | disposition home health service (06) ==
LOC: JER 21:59 → JERBED 04-27 00:02 → UNDOADMOB 04-27 00:02 → INTOOBSV 04-27 00:48 → OBSVTOIN 04-27 00:48 → JERBED 04-27 18:21 → J4S 04-27 18:21 → JERBED 04-28 10:14
PROVIDERS: ADMIT Internal Medicine; ATTEND Internal Medicine
PROC: 3E033NZ Introduction of Analgesics, Hypnotics, Sedatives into Peripheral Vein, Percutaneous Approach (ICD-10-PCS; principal; 2025-04-28)
PROC: 3E0F7GC Introduction of Other Therapeutic Substance into Respiratory Tract, Via Natural or Artificial Opening (ICD-10-PCS; 2025-04-28)
DX: I50.20 Unspecified systolic (congestive) heart failure (principal); E03.9 Hypothyroidism, unspecified; I49.8 Other specified cardiac arrhythmias; J44.9 Chronic obstructive pulmonary disease, unspecified; E78.5 Hyperlipidemia, unspecified; Z95.810 Presence of automatic (implantable) cardiac defibrillator; I35.0 Nonrheumatic aortic (valve) stenosis; R91.8 Other nonspecific abnormal finding of lung field; N40.0 Benign prostatic hyperplasia without lower urinary tract symptoms; R79.89 Other specified abnormal findings of blood chemistry; F10.21 Alcohol dependence, in remission; K62.89 Other specified diseases of anus and rectum; K86.89 Other specified diseases of pancreas; Z87.891 Personal history of nicotine dependence
CPT/HCPCS: 36415; 70470-TC; 71045-TC-FY; 71275-TC; 74174-TC; 80053; 83036; 83735; 83880; 84100; 84443; 84484; 85025; 85610; 85730; 86803; 87389; 87522; 93005; 93010; 94640; 96374; 97116-GP; 97161-GP; 99285-25; G0378; Q9967